=== PATIENT | male | born 1980 | race Caucasian/White ===

== ENCOUNTER 2021-05-03 06:44 | Inpatient (IN) | payer OTHER ==
[2021-05-03] VITALS (11 sets, daily range): BP systolic 100–120; BP diastolic 46–68
[~2021-05-03] VITALS: Ht 177.8 cm; Wt 106.8 kg
[2021-05-03] MEDS ORDERED: cefOXitin SODIUM IV Push 2 GM VIAL. IVP SCH (11:00)
--- NOTE | 2021-05-03 11:04 | PDOC2 ---
CONSULT Date of Consult Date of Consult DATE: 05/03/21 TIME: 11:00 Reason for Consult Reason for Consult: appendicitis Referring Physician Referring Physician: Dr. Ruano Identification/Chief Complaint Chief Complaint abd pain Source Source: Chart review, Patient History of Present Illness Reason for Visit: 41 yo M with c/o abd pain, periumbilical beginning last night, prompting evaluation at [facility] at midnight. Transferred to [facility] for evaluation. Pt with c/o persistent pain. Associated N/V. No previous episodes. Past Medical History Cardiovascular: No pertinent hx Past Surgical History Past Surgical History: No pertinent history Family History Family History: No Significant Social History No Allergies Allergies: Coded Allergies: No Known Drug Allergies (Unverified , 05/03/21) ROS Gastrointestinal: Yes Nausea, Yes Vomiting, Yes Abdominal Pain Physical Exam General: Alert, Oriented X3, Cooperative, mild distress HEENT: Atraumatic Lungs: Normal air movement Abdomen: Soft, Other (mild TTP RLQ, no peritoneal signs) Skin: No rashes, No breakdown Psych/Mental Status: Mental status NL, Mood NL Labs Labs WBC 10 CK 300[address] Images Images CT at [facility] c/w appendicitis with fecolith Assessment/Plan Assessment/Plan appendicitis TO OR for laparoscopic versus open appendectomy. R/R/B/A d/w pt. Risks, including, but not limited to: bleeding, infection, damage to surrounding structures, risk of anesthesia, risk of open. He appears to understand, his questions are answered and he elects to proceed. Thanks for consult! MEE HARPER MD May 03, 2021 11:04
[2021-05-03] MEDS ORDERED: fentaNYL PF VIAL 100 MCG/2 ML VIAL IVP PRN ×3 (11:15→11:45)
[2021-05-03] MEDS ORDERED: ONDANSETRON PF 4 MG/2 ML VIAL. IVP PRN ×2 (11:15→13:45)
[2021-05-03] MEDS ORDERED: BUPIVACAINE-EPI 0.5% 30 ML VIAL KIT. ONE (11:29)
[2021-05-03] MEDS ORDERED: DEXAMETHASONE SOD PHOS 4 MG/ML VIAL ONE (11:29)
[2021-05-03] MEDS ORDERED: ONDANSETRON PF 4 MG/2 ML VIAL. ONE (11:29)
[2021-05-03] MEDS ORDERED: PROPOFOL 10 MG/ML (20ML) VIAL. IV ONE (11:29)
[2021-05-03] MEDS ORDERED: ROCURONIUM 50 MG/5 ML VIAL. ONE (11:29)
[2021-05-03] MEDS ORDERED: fentaNYL PF VIAL 100 MCG/2 ML VIAL ONE ×3 (11:30→12:39)
[2021-05-03] MEDS ORDERED: PROCHLORPERAZINE 10 MG/2 ML VIAL. IVP PRN (11:45)
[2021-05-03] MEDS ORDERED: IV RINGERS,LACTATED 1000ML 1,000 ML IV SCH (11:45)
[2021-05-03] MEDS ORDERED: MORPHINE SULFATE 2 MG/ML INJ. IVP PRN (11:45)
[2021-05-03] MEDS ORDERED: HYDROmorphone 2 MG/ML VIAL IVP PRN (11:45)
[2021-05-03] MEDS ORDERED: MIDAZOLAM HCL/PF 2 MG/2 ML VIAL. ONE (11:56)
[2021-05-03] MEDS ORDERED: KETOROLAC 30 MG/ML VIAL. ONE (12:12)
[2021-05-03] MEDS ORDERED: GLYCOPYRROLATE 1 MG/5 ML VIAL. ONE (12:20)
[2021-05-03] MEDS ORDERED: ROCURONIUM 100 MG/10 ML VIAL. ONE (12:24)
[2021-05-03] MEDS ORDERED: NEOSTIGMINE METHYLSULFATE 5 MG/5 ML SYRINGE. ONE (12:31)
[2021-05-03] MEDS ORDERED: fentaNYL PF VIAL 250 MCG/5 ML VIAL ONE (12:37)
[2021-05-03] MEDS ORDERED: SEVOFLURANE 61 TO 120 MINUTES. IH ONE (12:58)
--- NOTE | 2021-05-03 13:41 | PDOC4 ---
OPERATIVE NOTE Date: Date: May 03, 2021 Pre-Op Diagnosis: Appendicitis Post-Op Diagnosis: same Procedure Performed: laparoscopic appendectomy Surgeon: Harris Harper Anesthesia Type: GETA plus local Blood Loss: 50 Specimans Obtained: appendix Findings: normal liver and gallbladder and other viscera, distended superior right colon, indurated retrocecal appendix extending up to liver edge, right ureter outside of area of dissection and maintained without injury, evidence of scarring of previous right groin repair Complications: none Operative Note: After obtaining informed consent, patient was taken to OR, induced under GETA and prepped in the usual fashion. 5 mm ports placed LLQ and suprapubic, 12 port placed umbilical. Abdominal cavity was explored and noted as above. [place] of taenia identified and right colon mobilized by dividing white line of toldt on the right to liver edge. Dissection was difficult throughout with retrocecal appendix up to liver. Mesoappendix divided sequentially back to insertion of appendix at base at cecum. General load MUNIRA taken across base of appendix. Appendix placed in bag, delivered and sent to pathology. Copious irrigation. No evidence of bleeding or other pathology. Ports removed without bleeding. Fascia repaired with 0 vicryl. Skin repaired with 4 0 monocryl. Dressing placed. Patien tolerated procedure well and sent to PACU in stable condition. All counts correct. Wound class is 3. MEE HARPER MD May 03, 2021 13:41
[2021-05-03] MEDS ORDERED: KETOROLAC 15 MG/ML VIAL. IV PRN (13:45)
[2021-05-03] MEDS ORDERED: HYDROcodone/APAP 5/325MG 1 TAB TABLET PO PRN (13:45)
[2021-05-03] MEDS ORDERED: IV NORMAL SALINE 1000ML BAG 1,000 ML IV SCH (13:45)
[2021-05-03] MEDS ORDERED: 0.9 % SODIUM CHLORIDE 10 ML DISP.SYRIN. IV PRN (13:45)
[2021-05-03] MEDS ORDERED: NALOXONE 0.4 MG/ML VIAL. IV PRN (13:45)
[2021-05-03] MEDS: IV RINGERS,LACTATED 1000ML 1,000 ML IV SCH ×2 (14:00→20:37)
--- NOTE | 2021-05-03 14:03 | HP ---
DATE OF SERVICE: 05/03/2021 ADMIT DATE: 05/03/2021 HISTORY OF PRESENT ILLNESS: The patient is a 41-year-old male patient who presented to the Emergency Room of [facility] with a complaint of nausea, vomiting and abdominal pain. The abdominal pain was initially generalized. He denied any bad food intake. He denied any specific ill contact. No recent travel or overseas assignment. Denied any trauma. The patient denied any fevers or chills. He reports multiple episodes of vomiting. The patient is normally healthy, up-to-date on his vaccination including COVID Moderna x 2. The patient has not had a seasonal flu vaccination as yet, normally follows at [place]. He has no significant past medical history. Past surgical history is significant for inguinal hernia repair on the right side. He did have a bowel movement early this morning. The patient was extensively evaluated in the Emergency Room of [facility] and had had lab work that were unremarkable. His white cell count was at 10,000. Urinalysis was unremarkable and toxic screen was positive for opiates. The CT scan of the abdomen and pelvis showed that he has mild acute appendicitis and trace free pelvic fluid. Therefore, the patient was transferred to [facility] to consult the surgical team for appendectomy. PAST MEDICAL HISTORY: Unremarkable. PAST SURGICAL HISTORY: Significant for right inguinal hernia repair. ALLERGIES: He has no known drug allergies. MEDICATIONS: The patient has no medication. FAMILY HISTORY: Has 1 younger brother, is healthy. His father had had right inguinal hernia. Both parents are otherwise healthy. SOCIAL HISTORY: He is . He does not smoke, drink alcohol or recreational drugs. He is in the [employer]. PHYSICAL EXAMINATION: GENERAL: On arrival to the Emergency Room, he looked well and was clearly in no apparent respiratory distress. There was no pallor, jaundice, cyanosis or thyromegaly. No jugular venous distention. No lower limb edema. VITAL SIGNS: His heart rate was 48, blood pressure was 118/48, temperature was 98.1, respiratory rate was 16 and oxygen saturation was 96%. HEAD, EYES, EARS, NOSE, AND THROAT: Normocephalic, atraumatic. NECK: Supple. HEART: Showed normal first and second heart sounds, no gallop, rub or murmur. CHEST: Shows central trachea, equal bilateral chest expansion, air entry, vesicular breath sounds. No crepitation or rhonchi. ABDOMEN: Distended, soft with tenderness mostly in the epigastric and mid abdomen. He does have rebound tenderness to mid and right lower quadrant. NEUROLOGIC: He was grossly intact. LABORATORY DATA: His lab work showed a white cell count of 10,000; hemoglobin 14; hematocrit 41; MCV 87 and platelet count of 171,000 with normal manual differential. His chemistry showed a serum sodium 138, potassium 3.9, chloride 102, bicarbonate 31, anion gap of 5, BUN 19, creatinine 1, estimated GFR was 83 mL per minute. His glucose ____, calcium was 9.4. Total bilirubin, AST, ALT, alkaline phosphatase were normal. CK was 367. Troponin was 5. Total protein was 6.5, albumin was 3.9 and lipase was 97. His prothrombin time, INR and APTT were normal. Urinalysis essentially unremarkable. Toxic screen was positive for opiates. His influenza A and B were negative as well as rapid coronavirus testing was negative. ASSESSMENT AND PLAN: The patient was admitted to [facility], kept n.p.o. Continue with IV fluid, IV pain medication and antiemetic and we have consulted the surgical team for definitive treatment. RENA DENG: Kirsten TID: [id number]
[2021-05-03] MEDS ORDERED: HYDROmorphone 2 MG/ML VIAL ONE (14:19)
[2021-05-03] MEDS: POTASSIUM CL 20MEQ D5-0.45NACL 1,000 ML IV SCH ×2 (17:33→20:37)
[2021-05-03] MEDS: DOCUSATE SODIUM 100 MG CAPSULE. PO SCH (20:30)
[2021-05-04 03:00] VITALS: BP 110/48
[2021-05-04 07:00] VITALS: BP 123/63
[2021-05-04 07:04] LABS: BASO % 0 % (0-3); EOS % 1 % (0-3); HEMATOCRIT 37.3 % (39.0-53.0); HEMOGLOBIN 12.9 g/dL (13.0-17.5); LYMPH # 1.4 x10^3/uL (1.0-4.8); LYMPH % 18 % (24-48); MEAN CORPUSCULAR HEMOGLOBIN 29 pg (25-35); MEAN CORPUSCULAR HGB CONC 35 g/dL (31-37); MEAN CORPUSCULAR VOLUME 85 fL (79-100); MONO # 0.9 x10^3/uL (0.0-1.1); MONO % 12 % (0-9); NEUT # 5.4 x10^3/uL (1.8-7.7); NEUT % 70 % (31-73); PLATELET COUNT 171 x10^3/uL (140-400); RED CELL DISTRIBUTION WIDTH 13.8 % (11.5-14.5); WHITE BLOOD COUNT 7.7 x10^3/uL (4.0-11.0)
[2021-05-04 07:23] LABS: ALBUMIN 3.4 g/dL (3.4-5.0); ALBUMIN/GLOBULIN RATIO 1.1 (1.0-1.7); CALCIUM 8.5 mg/dL (8.5-10.1); GFR 83.2; POTASSIUM 3.8 mmol/L (3.5-5.1); TOTAL BILIRUBIN 0.5 mg/dL (0.2-1.0); TOTAL PROTEIN 6.5 g/dL (6.4-8.2)
[2021-05-04] MEDS: POTASSIUM CL 20MEQ D5-0.45NACL 1,000 ML IV SCH (07:30)
[2021-05-04] MEDS: DOCUSATE SODIUM 100 MG CAPSULE. PO SCH (08:09)
--- NOTE | 2021-05-04 09:10 | PN ---
DATE: 05/04/2021 SUBJECTIVE: The patient is a 41-year-old male patient who presented to [facility] Emergency Room with abdominal pain and was diagnosed with acute appendicitis, transferred to [facility], was kept n.p.o., started on IV fluids, seen in consultation by the surgical team and underwent laparoscopic appendectomy successfully. When I saw him this morning, he continued to have some abdominal pain, mostly in the right lower quadrant, but denied any nausea or vomiting. He is tolerating his diet without any problem. PHYSICAL EXAMINATION: GENERAL: When I examined him, he looked well and was clearly in no apparent respiratory distress. No pallor, jaundice, cyanosis or thyromegaly. No jugular venous distention. No limb edema. VITAL SIGNS: His heart rate was 66, blood pressure is 123/63, temperature was 97.9, respiratory rate was 16 and oxygen saturation was 96%. HEAD, EYES, EARS, NOSE, AND THROAT: Showed normocephalic, atraumatic. NECK: Supple. HEART: Normal first and second heart sounds, no gallop or murmur. CHEST: Clear to auscultation, no crepitation or rhonchi. ABDOMEN: Distended, soft, nontender, except in the right lower quadrant. There is no guarding or rigidity. No organomegaly. All hernial orifice intact. Bowel sounds normal. NEUROLOGIC: He was grossly intact. LABORATORY DATA: This morning showed a white cell count of 7700, hemoglobin 13, hematocrit 37, MCV 85 and platelet count of 171,000 with normal manual differential. His chemistry showed a serum sodium 138, potassium 3.8, chloride 103, bicarbonate 31, anion gap of 4, BUN 14, creatinine 1, estimated GFR was 83 mL per minute. His glucose 110, calcium 8.5. Total bilirubin, AST, ALT, alkaline phosphatase were normal. Total protein 6.5, albumin 3.4. ASSESSMENT: Acute appendicitis, status post laparoscopic appendectomy. Patient is tolerating his food without any problem. Await the evaluation by the surgical team and probably discharge him home. BELÉN DR: Kirsten TID: [id number]
[2021-05-04] MEDS: IV RINGERS,LACTATED 1000ML 1,000 ML IV SCH (10:00)
--- NOTE | 2021-05-04 10:46 | NUR ---
SW following. Discussed with RN, pt from home, room air, GI soft. Pt had surgery 04/02/21. Possible discharge home today if okay with surgery. RN advised no SW needs at this time. SW will continue to follow.
[2021-05-04 11:00] VITALS: BP 114/60
[2021-05-04] MEDS ORDERED: HYDR-2761 PO (12:02)
--- NOTE | 2021-05-04 12:48 | NUR ---
Patient provided with discharge instructions and prescriptions. IV was removed and patient transported to car with by Sangita COLEY
--- NOTE | 2021-05-05 16:15 | PATHOLOGY ---
[facility] Accession Number: [id number] . 01 Material submitted: . appendix - APPENDIX . 01 Clinical history: . LAPAROSCOPIC APPENDECTOMY . 02 Diagnosis: Appendix, laparoscopic appendectomy: - Acute appendicitis. (CALEB:eve; 05/05/2021) MBR 05/05/2021 1338 Local . 02 Comment: There is no evidence of rupture. (CALEB:eve; 05/05/2021) . 02 Electronically signed: . Sanjeev Lynn MD, Pathologist NPI- [id number] . 01 Gross description: . Fixative: Formalin Labeled: Appendix Appendix length: 8.1 cm Appendix diameter: 1.0 cm Mesoappendix: 1.1 cm Proximal margin: Stapled Serosa: Purple-blake to pink-moreira and roughened Cut surface: Dilated Luminal diameter: Up to 0.4 cm Perforation: None present Lesions/abnormalities: None identified . Proximal margin and bisected tip in cassette A1. Additional community representative cross-sections in cassette A2. ([facility]; 05/04/2021) NRI/NRI 05/04/2021 2110 Local . 02 Pathologist provided ICD-10: K35.80 . 02 CPT . 394262 Specimen Comment: A courtesy copy of this report has been sent to [phone], [phone] Specimen Comment: [id number] Specimen Comment: Report sent to / DR WILLIS Specimen Comment: A duplicate report has been generated due to demographic updates. Performed at: 01 [facility] [address], [place], [place] [id number] MD Sg Garcia MD Phone: [phone] Performed at: [facility] [address] [place], [place] [id number] MD Sanjeev Lynn MD Phone: [phone]
== END 2021-05-04 12:50 | disposition home or self-care (01) | DRG 343 ==
LOC: 4 NORTH 06:44
PROVIDERS: ADMIT Internal Medicine; ATTEND Internal Medicine
PROC: 0DTJ4ZZ Resection of Appendix, Percutaneous Endoscopic Approach (ICD-10-PCS; principal; 2021-05-03 10:57)
DX: K35.80 Unspecified acute appendicitis (principal); Z79.899 Other long term (current) drug therapy; Z20.822 Contact with and (suspected) exposure to COVID-19
CPT/HCPCS: 36415; 80053; 85025; 88304; A4314; A4930; J1100; J1170; J1885; J2250; J2405; J2704; J2710; J3010; J3480; J3490; G0378